=== PATIENT | male | born 1950 | race Caucasian/White ===

== ENCOUNTER 2016-12-14 06:53 | Inpatient (IN) | payer MEDICARE, OTHER ==
[~2016-12-14] VITALS: Ht 190.5 cm; Wt 120.7 kg
--- NOTE | 2016-12-15 15:05 | NUR ---
REPORT GIVEN TO Latanya JUSTICE RN TO TAKE OVER CARE OF PATIENT
== END 2016-12-17 15:05 | DRG 470 ==
LOC: SDC 06:53 → MED 13:01
PROVIDERS: ADMIT Orthopaedic Surgery
PROC: 0SR902Z Replacement of Right Hip Joint with Metal on Polyethylene Synthetic Substitute, Open Approach (ICD-10-PCS; principal; 2016-12-14)
PROC: 30233N1 Transfusion of Nonautologous Red Blood Cells into Peripheral Vein, Percutaneous Approach (ICD-10-PCS; 2016-12-14)
DX: M16.11 Unilateral primary osteoarthritis, right hip (principal); D62 Acute posthemorrhagic anemia; K59.00 Constipation, unspecified; I10 Essential (primary) hypertension; J44.9 Chronic obstructive pulmonary disease, unspecified; E78.5 Hyperlipidemia, unspecified; F17.210 Nicotine dependence, cigarettes, uncomplicated; Z79.82 Long term (current) use of aspirin; Z79.899 Other long term (current) drug therapy; Z83.3 Family history of diabetes mellitus; Z82.49 Family history of ischemic heart disease and other diseases of the circulatory system; Z86.73 Personal history of transient ischemic attack (TIA), and cerebral infarction without residual deficits; N40.0 Benign prostatic hyperplasia without lower urinary tract symptoms; M19.90 Unspecified osteoarthritis, unspecified site; Z82.3 Family history of stroke
CPT/HCPCS: 73502-RT; 97161-GP; 97166; C1776; J1650; J1885; J2704; J2765; J7040; P9021; P9047